=== PATIENT | male | born 1970 | race Caucasian/White ===

== ENCOUNTER 2016-05-10 15:46 | Emergency (ER) | payer OTHER ==
[2016-05-10 16:23] LABS: URINE BACTERIA TRACE (NONE SEEN); URINE BILIRUBIN NEGATIVE (NEGATIVE); URINE BLOOD NEGATIVE (NEGATIVE); URINE GLUCOSE (UA) NORMAL (NORMAL); URINE KETONE NEGATIVE (NEGATIVE); URINE LEUKOCYTE ESTERASE TRACE (NEGATIVE); URINE NITRATE NEGATIVE (NEGATIVE); URINE PROTEIN TRACE (NEGATIVE); URINE RBC 0-5 /[HPF] (0-2); URINE SQUAMOUS EPITHELIAL CELL 0-10 /[HPF] (NONE SEEN); URINE WBC 0-5 /[HPF] (0-3)
== END 2016-05-10 17:50 | disposition home or self-care (01) ==
LOC: ER 15:46
PROVIDERS: Emergency Medicine
DX: R10.30 Lower abdominal pain, unspecified (principal); R30.0 Dysuria; K21.9 Gastro-esophageal reflux disease without esophagitis; E78.5 Hyperlipidemia, unspecified; Z79.899 Other long term (current) drug therapy
CPT/HCPCS: 81001; 99283-25

== ENCOUNTER 2016-06-02 19:08 | Emergency (ER) | payer OTHER | END 2016-06-02 23:30 | disposition left against medical advice (07) | LOC: ER 19:08 | DX: Z53.21 Procedure and treatment not carried out due to patient leaving prior to being seen by health care provider (principal) | CPT/HCPCS: 99211 ==

== ENCOUNTER 2016-06-10 19:10 | Emergency (ER) | payer OTHER ==
[2016-06-10 20:00] LABS: URINE BILIRUBIN NEGATIVE (NEGATIVE); URINE BLOOD TRACE (NEGATIVE); URINE GLUCOSE (UA) NORMAL (NORMAL); URINE KETONE NEGATIVE (NEGATIVE); URINE LEUKOCYTE ESTERASE TRACE (NEGATIVE); URINE NITRATE NEGATIVE (NEGATIVE); URINE PROTEIN NEGATIVE (NEGATIVE); UROBILINOGEN NORMAL mg/dL (<1.0)
[2016-06-10 20:10] LABS: URINE MUCUS TRACE; URINE WBC 0-5 /[HPF] (0-3)
== END 2016-06-10 20:45 | disposition home or self-care (01) ==
LOC: ER 19:10
PROVIDERS: Internal Medicine
DX: K59.00 Constipation, unspecified (principal); R31.9 Hematuria, unspecified; R06.02 Shortness of breath; R10.9 Unspecified abdominal pain; F17.220 Nicotine dependence, chewing tobacco, uncomplicated
CPT/HCPCS: 74000; 81001; 99284-25

== ENCOUNTER 2016-06-19 19:25 | Emergency (ER) | payer OTHER ==
[2016-06-19 19:44] LABS: URINE BILIRUBIN NEGATIVE (NEGATIVE); URINE BLOOD NEGATIVE (NEGATIVE); URINE GLUCOSE (UA) NORMAL (NORMAL); URINE KETONE NEGATIVE (NEGATIVE); URINE LEUKOCYTE ESTERASE NEGATIVE (NEGATIVE); URINE NITRATE NEGATIVE (NEGATIVE); URINE PROTEIN NEGATIVE (NEGATIVE); UROBILINOGEN NORMAL mg/dL (<1.0)
[2016-06-19 20:45] LABS: BASO % 0.5 % (0.2-1.2); EOS # 0.5 10_X3_uL (0.0-0.5); GRAN # 4.1 10_X3_uL (1.8-5.4); GRAN % 54.4 % (34.0-67.9); HEMATOCRIT 42.4 % (40-51); HEMOGLOBIN 14.6 g/dL (13.7-17.5); LYMPH # 2.6 10_X3_uL (1.3-3.6); LYMPH % 34.5 % (21.8-53.1); MEAN CORPUSCULAR HEMOGLOBIN 29.5 pg (27.0-33.0); MEAN CORPUSCULAR HGB CONC 34.4 g/dL (32.0-36.0); MEAN CORPUSCULAR VOLUME 85.7 fL (79-92); MEAN PLATELET VOLUME 8.5 fl (7.5-11.5); MONO # 0.4 10_X3_uL (0.3-0.8); MONO % 4.6 % (5.3-12.2); PLATELET COUNT 334 x10_3/uL (163-337); RED BLOOD COUNT 4.95 x10_6/uL (4.6-6.1); RED CELL DISTRIBUTION WIDTH 13.2 % (11.6-14.4); WHITE BLOOD COUNT 7.5 x10_3/uL (4.2-9.1)
[2016-06-19 21:05] LABS: ALBUMIN 4.5 gm/dL (3.4-5.0); ALKALINE PHOSPHATASE 76 U/L (50-136); ALT/SGPT 10 U/L (7.53-40.17); AMYLASE 52 U/L (15.62-74.58); AST/SGOT 12 U/L (6.66-35.34); BILIRUBIN,TOTAL 0.19 mg/dL (0.0-1.0); BLOOD UREA NITROGEN 7 mg/dL (7-18); CALCIUM 8.9 mg/dL (8.7-10.7); CARBON DIOXIDE 30 mmol/L (21-32); CREATININE 0.9 mg/dL (0.6-1.3); GLUCOSE,RANDOM 110 mg/dL (70-99); LIPASE 29 U/L (6.75-60.75); POTASSIUM 3.7 mmol/L (3.5-5.1); SODIUM 143 mmol/L (136-145); TOTAL PROTEIN 7.3 gm/dL (6.4-8.2)
== END 2016-06-19 21:33 | disposition home or self-care (01) ==
LOC: ER 19:25
PROVIDERS: Emergency Medicine; Internal Medicine
DX: J20.9 Acute bronchitis, unspecified (principal); R10.30 Lower abdominal pain, unspecified; R06.02 Shortness of breath; E78.5 Hyperlipidemia, unspecified; F17.220 Nicotine dependence, chewing tobacco, uncomplicated; Z79.899 Other long term (current) drug therapy
CPT/HCPCS: 36415; 71020; 74150; 80053; 81003; 82150; 83690; 85025; 99070; 99284-25

== ENCOUNTER 2016-07-23 16:28 | Emergency (ER) | payer OTHER ==
[2016-07-23 17:04] LABS: URINE BILIRUBIN NEGATIVE (NEGATIVE); URINE BLOOD NEGATIVE (NEGATIVE); URINE GLUCOSE (UA) NORMAL (NORMAL); URINE KETONE NEGATIVE (NEGATIVE); URINE LEUKOCYTE ESTERASE TRACE (NEGATIVE); URINE NITRATE NEGATIVE (NEGATIVE); URINE PROTEIN TRACE (NEGATIVE); UROBILINOGEN NORMAL mg/dL (<1.0)
[2016-07-23 17:15] LABS: URINE BACTERIA TRACE (NONE SEEN); URINE RBC RARE /[HPF] (0-2); URINE SQUAMOUS EPITHELIAL CELL 0-10 /[HPF] (NONE SEEN); URINE WBC 0-5 /[HPF] (0-3)
== END 2016-07-23 17:41 | disposition home or self-care (01) ==
LOC: ER 16:28
PROVIDERS: General Practice
DX: R30.0 Dysuria (principal); R10.9 Unspecified abdominal pain; F17.220 Nicotine dependence, chewing tobacco, uncomplicated; Z79.899 Other long term (current) drug therapy
CPT/HCPCS: 74150; 81001; 99283-25

== ENCOUNTER 2016-07-25 11:11 | Emergency (ER) | payer OTHER ==
[2016-07-25 11:48] LABS: BASO % 0.4 % (0.2-1.2); EOS # 0.1 10_X3_uL (0.0-0.5); EOS % 0.9 % (0.8-7.0); GRAN # 6.6 10_X3_uL (1.8-5.4); GRAN % 72.7 % (34.0-67.9); HEMATOCRIT 43.9 % (40-51); HEMOGLOBIN 15.8 g/dL (13.7-17.5); LYMPH # 2.1 10_X3_uL (1.3-3.6); LYMPH % 22.5 % (21.8-53.1); MEAN CORPUSCULAR HEMOGLOBIN 29.9 pg (27.0-33.0); MEAN PLATELET VOLUME 8.7 fl (7.5-11.5); MONO # 0.3 10_X3_uL (0.3-0.8); MONO % 3.5 % (5.3-12.2); PLATELET COUNT 315 x10_3/uL (163-337); RED BLOOD COUNT 5.29 x10_6/uL (4.6-6.1); RED CELL DISTRIBUTION WIDTH 12.9 % (11.6-14.4); WHITE BLOOD COUNT 9.1 x10_3/uL (4.2-9.1)
[2016-07-25 12:01] LABS: ALBUMIN 4.9 gm/dL (3.4-5.0); ALKALINE PHOSPHATASE 79 U/L (50-136); ALT/SGPT 14 U/L (7.53-40.17); AMYLASE 47 U/L (15.62-74.58); AST/SGOT 17 U/L (6.66-35.34); BILIRUBIN,TOTAL 0.46 mg/dL (0.0-1.0); BLOOD UREA NITROGEN 13 mg/dL (7-18); CALCIUM 9.7 mg/dL (8.7-10.7); CARBON DIOXIDE 28 mmol/L (21-32); GLUCOSE,RANDOM 191 mg/dL (70-99); LIPASE 20 U/L (6.75-60.75); POTASSIUM 3.6 mmol/L (3.5-5.1); SODIUM 140 mmol/L (136-145); TOTAL PROTEIN 8.1 gm/dL (6.4-8.2)
== END 2016-07-25 13:20 | disposition home or self-care (01) ==
LOC: ER 11:11
PROVIDERS: General Practice
DX: I88.0 Nonspecific mesenteric lymphadenitis (principal); R10.10 Upper abdominal pain, unspecified; S91.311A Laceration without foreign body, right foot, initial encounter; X58.XXXA Exposure to other specified factors, initial encounter; F17.220 Nicotine dependence, chewing tobacco, uncomplicated
CPT/HCPCS: 36415; 80053; 82150; 83690; 85025; 99284-25

== ENCOUNTER 2016-07-26 14:06 | Emergency (ER) | payer OTHER | END 2016-07-26 16:52 | disposition home or self-care (01) | LOC: ER 14:06 | DX: J06.9 Acute upper respiratory infection, unspecified (principal); R06.02 Shortness of breath; F17.220 Nicotine dependence, chewing tobacco, uncomplicated | CPT/HCPCS: 94664; 99284-25 ==